=== PATIENT | male | born 1960 | race Caucasian/White ===

== ENCOUNTER 2018-03-13 17:28 | Emergency (ER) | payer SELFPAY ==
[2018-03-13 17:30] VITALS: BP 121/75; PULSE 68; RESP 18; TEMP 36.3; O2SAT 97; BMI 20.3
--- NOTE | 2018-03-13 18:00 | DI.RAD.S_ITS ---
PROCEDURE: XR CHEST 1V INDICATIONS: Chest pain TECHNIQUE: One view of the chest was acquired. COMPARISON: None. FINDINGS: Surgical changes and devices: None. Lungs and pleura: No pleural effusions or pneumothorax. Lungs are clear. Mediastinum: Mediastinal contours appear normal. Heart size is normal. Bones and chest wall: No suspicious bony lesions. Overlying soft tissues appear unremarkable. IMPRESSION: No acute cardiopulmonary findings. Dictated by: Mariana Church M.D. on 03/13/2018 at 19:05 Approved by: Mariana Church M.D. on 03/13/2018 at 19:06
[2018-03-13 18:06] LABS: Add Manual Diff / Slide Review NO; Basophils Percent Auto 0.5 % (0-2); Eosinophils Percent Auto 1.4 % (2-4); Hematocrit 40.4 % (41-53); Lymphocytes Percent Auto 32.5 % (25-40); Mean Corpuscular HGB Conc 34.7 % (30-36); Mean Corpuscular Hemoglobin 31.4 PG (26-34); Mean Corpuscular Volume 90.4 fL (80-100); Monocytes Percent Auto 9.3 % (3-14); Neutrophils Absolute Auto 3400 /uL (3000-5900); Neutrophils Percent Auto 56.3 % (50-75); Platelet Count 188 X10^3/uL (150-400); Red Blood Cell Count 4.47 X10^6/uL (4.5-5.9); Red Cell Distribution Width 13.6 % (11.6-14.8)
[2018-03-13 18:07] LABS: INR 1.1 (0.9-1.3)
--- NOTE | 2018-03-13 18:08 | ED.CHESTPAIN ---
HPI - Chest Pain General Chief Complaint: Chest Pain Stated Complaint: CHEST PAINS Time Seen by Provider: 03/13/18 18:08 Source: patient and RN notes reviewed Mode of arrival: ambulatory Limitations: no limitations History of Present Illness HPI narrative: Patient is a 57-year-old male presenting with left-sided chest pain ongoing for the last 3-4 days. It is constant in nature with no exacerbating or relieving factors. It seems to be getting a little worse today. It is nonradiating. He has no fever cough chills. MD complaint: chest pain Onset (ago): day(s) Duration: constant Pain location: left chest Quality: aching Pain radiation: none Relieving factors: nothing Exacerbating factors: nothing Treatments prior to arrival chest pain: aspirin (325mg) Related Data Allergies Allergy/AdvReac Type Severity Reaction Status Date / Time No Known Drug Allergies Allergy Verified 03/13/18 17:44 Review of Systems Review of Systems All systems reviewed & are unremarkable except as noted in HPI and below Constitutional Denies chills, Denies fever(s), Denies lethargy and Denies weakness Cardiovascular Reports as per HPI, Denies dyspnea and Denies dyspnea on exertion Respiratory Denies cough, Denies dyspnea, Denies dyspnea on exertion and Denies wheezing Gastrointestinal Gastrointestinal: Denies abdominal pain, Denies change in bowel habits, Denies diarrhea, Denies nausea and Denies vomiting Genitourinary Denies hematuria, Denies flank pain, Denies urinary incontinence and Denies urinary urgency Musculoskeletal Denies back pain, Denies muscle weakness, Denies numbness and Denies tingling Integumentary/Breasts Denies pruritus, Denies erythema, Denies rash and Denies wounds Neurologic Denies numbness, Denies tingling and Denies weakness Allergic/Immunologic Denies wheezing [facility] Social History Smoking Status: Never smoker Exam Const General: cooperative and well developed Nutritional Appearance: well nourished Orientation: alert, awake, oriented x3 and not confused Eyes General: appearance normal, both eyes and all related structures Eyelids: eyelids normal Conjunctivae: conjunctivae normal Sclera: sclerae normal Pupils: PERRL EOM: EOM intact bilaterally Resp Effort & Inspection: normal respiratory effort, able to speak in complete sentences, no respiratory distress and no use of accessory muscles Auscultation: clear to auscultation bilaterally, no rales, no rhonchi and no wheezes Cardio Rate: regular rate Rhythm: regular rhythm Heart Sounds: no click, no gallops, no murmurs and no rubs Pulses: normal peripheral pulses GI Inspection: normal to inspection and non-distended Palpation: soft, No pulsatile mass and No tender Skin General: no rashes or lesions noted, No jaundice and No petechiae Neuro General: alert, oriented x3 and gait normal Speech: speech normal Sensory Exam: no sensory deficits noted MDM - Chest Pain MDM Narrative Medical decision making narrative: Patient has been having ongoing left-sided consistent chest pain for 3 days whole blood work within normal limits. D-dimer negative not clinically suspicious for dissection or PE. Feeling better after bronchodilators. Discussed he may need further workup with his primary care provider. Understands warning signs and when to return. HEART Score for Major Cardiac Events from [email or web address] on 03/13/2018 All calculations should be rechecked by clinician prior to use RESULT SUMMARY: 1 points Low Score (0-3 points) Risk of MACE of 0.9-1.7%. INPUTS: History ???> 0 = Slightly suspicious EKG ???> 0 = Normal Age ???> 1 = 45-64 Risk factors ???> 0 = No known risk factors Initial troponin ???> 0 = ?normal limit Differential Diagnosis Likely pneumothorax, stable angina, unstable angina pectoris and atypical chest pain Medical Records Data Attestation: I reviewed the patient's medical records. Lab Data Attestation: I reviewed the patient's lab results. Result diagrams: 03/13/18 17:48 03/13/18 17:48 Lab Results 03/13/18 03/13/18 03/13/18 Range/Units 17:48 17:48 17:48 WBC 6.0 (4.5-11.0) X10^3/uL RBC 4.47 L (4.5-5.9) X10^6/uL Hgb 14.0 (13.5-17.5) g/dL Hct 40.4 L (41-53) % MCV 90.4 (80-100) fL MCH 31.4 (26-34) PG MCHC 34.7 (30-36) % RDW 13.6 (11.6-14.8) % Plt Count 188 (150-400) X10^3/uL Neut % (Auto) 56.3 (50-75) % Lymph % (Auto) 32.5 (25-40) % Patrick % (Auto) 9.3 (3-14) % Eos % (Auto) 1.4 L (2-4) % Baso % (Auto) 0.5 (0-2) % Neut # (Auto) 3400 (2127-9914) /uL PT 12.0 (10.1-12.7) SECONDS INR 1.1 (0.9-1.3) APTT 30 (26.4-36.2) SECONDS D-Dimer (<231) ng/mL Sodium 138 (137-145) mmol/L Potassium 3.5 (3.4-5.1) mmol/L Chloride 101.0 (98-107) mmol/L Carbon Dioxide 28.0 (22-32) mmol/L BUN 9.0 (9-20) mg/dL Creatinine 0.70 (0.66-1.25) mg/dL Estimated GFR > 60.0 (>60) mL/min BUN/Creatinine Ratio 12.9 (6-22) Glucose 87 (70-100) mg/dL Calcium 9.3 (8.4-10.2) mg/dL Total Bilirubin 0.6 (0.2-1.3) mg/dL AST 31 (17-59) IU/L ALT 35 (21-72) IU/L Alkaline Phosphatase 58 (38-126) U/L Total Creatine Kinase 127 (55-170) U/L CK-MB (CK-2) 1.43 (<2.37) ng/mL CK-MB (CK-2) Rel Index 1.1 L (1.5-5.0) % Troponin I < 0.012 (0.01-0.034) ng/mL Total Protein 6.9 (6.3-8.2) g/dL Albumin 4.0 (3.5-5.0) g/dL Globulin 2.9 (1.7-4.1) g/dL Albumin/Globulin Ratio 1.4 (1.0-2.8) Lipase 99 (23-300) U/L 03/13/18 Range/Units 17:48 WBC (4.5-11.0) X10^3/uL RBC (4.5-5.9) X10^6/uL Hgb (13.5-17.5) g/dL Hct (41-53) % MCV (80-100) fL MCH (26-34) PG MCHC (30-36) % RDW (11.6-14.8) % Plt Count (150-400) X10^3/uL Neut % (Auto) (50-75) % Lymph % (Auto) (25-40) % Patrick % (Auto) (3-14) % Eos % (Auto) (2-4) % Baso % (Auto) (0-2) % Neut # (Auto) (8404-8540) /uL PT (10.1-12.7) SECONDS INR (0.9-1.3) APTT (26.4-36.2) SECONDS D-Dimer < 200 (<231) ng/mL Sodium (137-145) mmol/L Potassium (3.4-5.1) mmol/L Chloride (98-107) mmol/L Carbon Dioxide (22-32) mmol/L BUN (9-20) mg/dL Creatinine (0.66-1.25) mg/dL Estimated GFR (>60) mL/min BUN/Creatinine Ratio (6-22) Glucose (70-100) mg/dL Calcium (8.4-10.2) mg/dL Total Bilirubin (0.2-1.3) mg/dL AST (17-59) IU/L ALT (21-72) IU/L Alkaline Phosphatase (38-126) U/L Total Creatine Kinase (55-170) U/L CK-MB (CK-2) (<2.37) ng/mL CK-MB (CK-2) Rel Index (1.5-5.0) % Troponin I (0.01-0.034) ng/mL Total Protein (6.3-8.2) g/dL Albumin (3.5-5.0) g/dL Globulin (1.7-4.1) g/dL Albumin/Globulin Ratio (1.0-2.8) Lipase (23-300) U/L Imaging Data Chest x-ray: Attestation: I personally reviewed and interpreted this imaging study as follows: Radiologist's impression: PROCEDURE: XR CHEST 1V INDICATIONS: Chest pain TECHNIQUE: One view of the chest was acquired. COMPARISON: None. FINDINGS: Surgical changes and devices: None. Lungs and pleura: No pleural effusions or pneumothorax. Lungs are clear. Mediastinum: Mediastinal contours appear normal. Heart size is normal. Bones and chest wall: No suspicious bony lesions. Overlying soft tissues appear unremarkable. IMPRESSION: No acute cardiopulmonary findings. ECG Data Attestation: I personally reviewed and interpreted this ECG as follows: Prior ECG tracings: not available for review Interpretation: Normal sinus rhythm rate 66 no acute ischemia home no priors to compare Course Orders Ordered: ED Orders 03/13/18 17:48 Complete Blood Count AUTO DIFF Stat Comprehensive Metabolic Panel Stat D Dimer Stat Lipase Stat Partial Thromboplastin Time Stat Prothrombin Time INR Stat Troponin with CK Cardiac Panel Stat 03/13/18 18:00 XR chest 1V Stat Discontinued Medications Albuterol (Ventolin Hfa Prepack) 1 box MISC SEEINSTR ONE Stop: 03/13/18 19:08 Last Admin: 03/13/18 19:24 Dose: 1 box Albuterol (Ventolin) 2.5 mg INH NOW ONE Stop: 03/13/18 19:08 Last Admin: 03/13/18 19:16 Dose: 2.5 mg Reevaluation(s) Reevaluation #1: Patient continues to watch his vitals on the monitor and he gets very stressed out about the RR. On try to explain this is not always accurate and his other vitals are all within normal limits and nothing I am worried about. On his chest discomfort has begun to arise. Will give him a nebulizer treatment. Reevaluation #2: Feeling much better after albuterol nebulizer. Spacer teaching with Respiratory. Time: 19:30 Last Vital Signs Temp 97.4 F L 03/13/18 17:30 Pulse 69 03/13/18 19:15 Resp 18 03/13/18 19:15 BP 116/75 03/13/18 19:15 Pulse Ox 98 03/13/18 19:17 Discharge Plan Departure Patient Disposition: Home, Self-Care Clinical Impression: Atypical chest pain Discharge Date/Time: 03/13/18 19:40 Interventions: ED Discharge Assessment Last Done: 03/13/18 19:39 Instructions: DI for Atypical Chest Pain Activity Restrictions/Additional Instructions: *You have been diagnosed with atypical chest pain *What to do: You may require further workup with your primary care provider. At this time blood work EKG and chest x-ray are negative *Take medications as directed -albuterol inhaler with spacer every 4 hr only if needed for chest tightness or shortness of breath *Follow up with your primary care provider in 2-3 days *Return to ER if you should have increasing chest pain, no relief with albuterol or any new, worsening or concerning symptoms Referrals: Stephanie Dean ARNP [Primary Care Provider] -
[2018-03-13 18:10] LABS: PTT Partial Thromboplastin Tim 30 SECONDS (26.4-36.2)
[2018-03-13 18:11] LABS: Alanine Aminotransferase 35 IU/L (21-72); Albumin Globulin Ratio 1.4 (1.0-2.8); Alkaline Phosphatase 58 U/L (38-126); Aspartate Aminotransferase 31 IU/L (17-59); BUN Creatinine Ratio 12.9 (6-22); Bilirubin Total 0.6 mg/dL (0.2-1.3); Calcium 9.3 mg/dL (8.4-10.2); Creatine Kinase 127 U/L (55-170); Estimated Glomerular Filt Rate > 60.0 mL/min (>60); Globulin 2.9 g/dL (1.7-4.1); Glucose 87 mg/dL (70-100); HEMOLYSIS < 15 (0-50); Lipase 99 U/L (23-300); Potassium 3.5 mmol/L (3.4-5.1); Sodium 138 mmol/L (137-145); Total Protein 6.9 g/dL (6.3-8.2)
[2018-03-13 18:23] LABS: Troponin I < 0.012 ng/mL (0.01-0.034)
[2018-03-13 18:26] LABS: CKMB % Relative Index 1.1 % (1.5-5.0); Creatine Kinase MB 1.43 ng/mL (<2.37)
[2018-03-13 18:30] VITALS: BP 114/71; PULSE 60; O2SAT 96
[2018-03-13 18:32] LABS: D Dimer < 200 ng/mL (<231)
[2018-03-13 19:15] VITALS: BP 116/75; PULSE 69; RESP 18; O2SAT 97
[2018-03-13] MEDS: ALBUTEROL 2.5 MG/3 ML NEB INH (19:16)
[2018-03-13 19:17] VITALS: O2SAT 98
--- NOTE | 2018-03-13 19:23 | RT ---
PT INSTRUCTED ON PROPER MDI W/ SPACER USE.
[2018-03-13] MEDS: ALBUTEROL HFA PREPACK 1 BOX MISC (19:24)
== END 2018-03-13 19:40 | disposition home or self-care (01) ==
PROVIDERS: Emergency Provider Emergency Medicine; PCP Nurse Practitioner Family
DX: R07.89 Other chest pain (principal)
CPT/HCPCS: 36591; 71045; 80053; 82550; 82553; 83690; 84484; 85025; 85379; 85610; 85730; 93005; 93041; 94640; 99283; 99285; J7613